=== PATIENT | female | born 1990 | race Caucasian/White ===

== ENCOUNTER 2016-11-06 19:29 | Emergency (ER) | payer BC, OTHER ==
[2016-11-06 19:37] VITALS: O2SAT 100
--- NOTE | 2016-11-06 19:48 | C.PDOC ---
History Of Present Illness 26 year old female with a history of hypothyroidism presents to the ED with complaints of intermittent episodes of nausea and lightheadedness, feeling "dry, " hyperventilating, palpitations, and tachycardia for five days. Patient states after going out drinking with friends last Friday night she had a syncopal episode and was taken home and put to bed. Patient states she drank less than she normally does but awake the next day feeling "hung over" with her current symptoms. She notes she went to the doctor's office on Friday and labs were performed but there are no results as of now. Patient denies being sexually active, is taking her Synthroid medication, and has no known history of cardiac or lung diseases. She notes her thyroid was checked three months ago and was normal. Patient denies fever, chills, vomiting, and diarrhea. Time Seen by Provider: 11/06/16 19:43 Chief Complaint (Nursing): Dizziness/Lightheaded History Per: Patient History/Exam Limitations: no limitations Onset/Duration Of Symptoms: Days (5 days ), Intermittent Episodes (of nausea and lightheadedness) Current Symptoms Are (Timing): Still Present Seizure Or Post-ictal Symptoms: None Fall Associated With With Symptoms: No Recent travel outside of the [place]: No Past Medical History Reviewed: Historical Data, Nursing Documentation, Vital Signs Vital Signs: Last Vital Signs Temp 97.7 F 11/06/16 19:32 Pulse 103 H 11/06/16 21:25 Resp 13 11/06/16 21:25 BP 127/89 11/06/16 21:25 Pulse Ox 100 11/06/16 21:25 - Medical History PMH: Hypothyroidism Family History: States: Unknown Family Hx - Social History Hx Tobacco Use: Yes Hx Alcohol Use: No Hx Substance Use: No - Immunization History Hx Tetanus Toxoid Vaccination: No Hx Influenza Vaccination: No Hx Pneumococcal Vaccination: No Review Of Systems Constitutional: Negative for: Fever, Chills Cardiovascular: Positive for: Palpitations, Other (Worsening tachycardia ). Negative for: Chest Pain Respiratory: Negative for: Cough, Shortness of Breath Gastrointestinal: Positive for: Nausea. Negative for: Vomiting, Abdominal Pain , Diarrhea Neurological: Positive for: Other (lightheadedness ). Negative for: Weakness, Numbness Physical Exam - Physical Exam Appears: Non-toxic, No Acute Distress, Other (Patient appears comfortable ) Skin: Warm, Dry Head: Atraumatic Eye(s): bilateral: Normal Inspection, EOMI Oral Mucosa: Moist Neck: Supple, Other (No thyroid swelling on palpation ) Cardiovascular: Other (Patient is tachycardic) Respiratory: Normal Breath Sounds, No Rales, No Rhonchi, No Wheezing Gastrointestinal/Abdominal: Soft, No Tenderness, No Distention, No Guarding, No Rebound Extremity: Normal ROM, No Tenderness, No Pedal Edema, No Calf Tenderness, Capillary Refill (good capillary refill, less than two seconds ), No Deformity, No Swelling Neurological/Psych: Oriented x3, Normal Speech, Normal Cognition, Other ( Patient is speaking in full complete sentences) ED Course And Treatment - Laboratory Results Result Diagrams: 11/06/16 20:14 11/06/16 20:14 Lab Interpretation: Normal ECG: Interpreted By Me, Viewed By Me ECG Rhythm: Sinus Tachycardia ECG Interpretation: Abnormal Rate From EC O2 Sat by Pulse Oximetry: 100 (room air ) Pulse Ox Interpretation: Normal - Radiology CXR: Interpreted by Me CXR Interpretation: Yes: No Acute Disease Progress Note: EKG, UA, and labs were ordered. Reevaluation Time: 23:05 Reassessment Condition: Improved (after IV fluids, Reglan for headache and Zofran for nausea.) Disposition Counseled Patient/Family Regarding: Studies Performed, Diagnosis, Need For Followup - Disposition Referrals: Chuck Marrufo MD [Staff Provider] - Disposition: HOME/ ROUTINE Disposition Time: 23:06 Condition: IMPROVED Instructions: Atrial Tachycardia (ED) Forms: [facility] (Panamanian) - Clinical Impression Clinical Impression: Sinus tachycardia, Thyroid disease - Scribe Statement The provider has reviewed the documentation as recorded by the [employer] All medical record entries made by the Scribe were at my direction and personally dictated by me. I have reviewed the chart and agree that the record accurately reflects my personal performance of the history, physical exam, medical decision making, and the department course for this patient. I have also personally directed, reviewed, and agree with the discharge instructions and disposition.
[2016-11-06 20:19] LABS: BASO % 0.5 % (0.0-2.0); HEMATOCRIT 41.2 % (34.0-47.0); LYMPH # 2.3 K/uL (1.0-4.3); MEAN CELL VOLUME 87.5 fL (81.0-99.0); MEAN CORPUSCULAR HEMOGLOBIN 29.7 pg (27.0-31.0); MEAN PLATELET VOLUME 7.9 fL (7.2-11.7); MONO # 0.4 K/uL (0.0-0.8); MONO % 4.6 % (0.0-10.0); RED CELL DISTRIBUTION WIDTH 13.2 % (11.5-14.5); WHITE BLOOD COUNT 7.7 K/uL (4.8-10.8)
[2016-11-06 20:24] LABS: CHLORIDE 99 mmol/L (98-107)
[2016-11-06 20:25] LABS: POTASSIUM 4.2 mmol/L (3.6-5.2); SODIUM 138 mmol/L (132-148)
[2016-11-06 20:27] LABS: GFR AFRICAN-AMERICAN > 60
[2016-11-06 20:28] LABS: ALB/GLOB RATIO 1.2 (1.0-2.1); ALKALINE PHOSPHATASE 30 U/L (38-126); ALT/SGPT 21 U/L (9-52); AST/SGOT 13 U/L (14-36); BILIRUBIN,TOTAL 0.6 mg/dL (0.2-1.3); BLOOD UREA NITROGEN 11 mg/dL (7-17); CALCIUM 8.8 mg/dl (8.6-10.4); CARBON DIOXIDE 26 mmol/L (22-30); GLUCOSE,RANDOM 89 mg/dL (65-105); TOTAL PROTEIN 7.6 g/dL (6.3-8.3)
[2016-11-06 20:45] LABS: FREE T4 1.51 ng/dL (0.78-2.19)
[2016-11-06 20:54] LABS: RBC URINE < 1 /hpf (0-3); URINE BACTERIA OCC (<OCC); URINE BILIRUBIN NEGATIVE (NEGATIVE); URINE BLOOD NEGATIVE (NEGATIVE); URINE COLOR Yellow (YELLOW); URINE GLUCOSE (UA) NORMAL (Normal); URINE KETONE NEGATIVE (NEGATIVE); URINE LEUKOCYTE ESTERASE NEG Leu/uL (Negative); URINE PROTEIN NEGATIVE (NEGATIVE); URINE UROBILINOGEN NORMAL mg/dL (0.2-1.0); WBC URINE 2 /hpf (0-5)
[2016-11-06 20:59] LABS: THYROID STIMULATING HORMONE 0.2 mIU/L (0.46-4.68)
[2016-11-06] MEDS ORDERED: Sodium Chloride 0.9% 1,000 ML IV ONE (21:07)
[2016-11-06] MEDS ORDERED: Sodium Chloride 0.9% 1,000 ML ONE (21:16)
[2016-11-06 23:19] VITALS: BP 130/88; PULSE 93; RESP 18; TEMP 98
--- NOTE | 2016-11-07 10:02 | RAD ---
PROCEDURE: CHEST RADIOGRAPH, 1 VIEW HISTORY: SOB COMPARISON: None available. FINDINGS: LUNGS: No acute infiltrate or pleural effusion identified. No pneumothorax. PLEURA: As above CARDIOVASCULAR: Normal. OSSEOUS STRUCTURES: There is a mild scoliotic deformity of the thoracic spine which is again appreciated, not simply changed in the interval. VISUALIZED UPPER ABDOMEN: Normal. OTHER FINDINGS: None. IMPRESSION: No acute cardiopulmonary disease or significant interval change appreciated.
--- NOTE | 2016-11-08 12:25 | CARD ---
APPROVED REPORT EKG Measurement Heart [id number] VT [id number] <Conclusion> Sinus tachycardia Otherwise normal ECG
== END 2016-11-06 23:18 | disposition home or self-care (01) ==
LOC: C.ER 19:29
DX: E03.9 Hypothyroidism, unspecified (principal); R00.0 Tachycardia, unspecified
CPT/HCPCS: 71010; 80053; 81001; 84439; 84443; 84484; 84703; 85025; 85378; 96361; 96374; 96375; 99285; J2405; J2765; J7040